=== PATIENT | male | born 1965 | race Hispanic/Latino ===

== ENCOUNTER 2018-08-17 18:45 | Emergency (ER) | payer SELFPAY ==
--- NOTE | 2018-08-17 20:22 | RAD REPORT ---
EXAM DESCRIPTION: RAD - Ankle Right 3 View - 08/17/2018 8:16 pm CLINICAL HISTORY: Ankle pain, twisting injury COMPARISON: None. FINDINGS: An oblique fracture is present through the distal fibula just superior to the tibiotalar j oint line. No angulation deformity. There is a minimal posterior displacement. There is a small free fracture fragment along the medial margin of the fracture plane. No distal tibia fracture. Ankle mortise is normal. Small plantar spur is present. Lateral soft tissue swelling is present. IMPRESSION: Distal right fibula fracture as detailed.
[2018-08-17] MEDS ORDERED: HYDROCODONE/APAP 7.5/325 MG TAB ONE (21:53)
[2018-08-17] MEDS ORDERED: KETOROLAC 30 MG/ML INJ ONE (21:54)
--- NOTE | 2018-08-17 22:03 | EDPHYS ---
Physician Documentation [facility] Name: Christian Rivers Age: 53 yrs Sex: Male : 1965 Arrival Date: 08/17/2018 Time: 18:46 Bed 24 Private MD: ED Physician Vern Quesada HPI: 08/17 21:46 This 53 yrs old Male presents to ER via Wheelchair with complaints of Foot snw Injury. 21:46 The patient presents with a contusion, decreased range of motion, pain, swelling, snw tenderness. The complaints affect the lateral aspect of right calf, right ankle, anterior aspect of right ankle and dorsum of right foot. Context: The problem was sustained outdoors, resulted from a mis-step, hole while exiting his vehicle, twisting of the extremity, the patient can partially bear weight, can ambulate using a cane. Onset: The symptoms/episode began/occurred suddenly, 1 week(s) ago, and became persistent. Associated signs and symptoms: Pertinent positives: swelling, ecchymosis, tenderness. Treatment prior to arrival includes: no previous treatment. Severity of symptoms: At their worst the symptoms were moderate. The patient has not experienced similar symptoms in the past. The patient has not recently seen a physician. Historical: - Allergies: 19:08 No Known Allergies; jd3 - Home Meds: 19:08 Metformin Oral [Active]; jd3 - PMHx: 19:08 Diabetes - NIDDM; jd3 22:42 Hypertension; wh - PSHx: 19:08 None; jd3 - Immunization history:: Adult Immunizations up to date, Flu vaccine is up to date. - Social history:: Smoking status: Patient/guardian denies using tobacco. - Ebola Screening: : Patient negative for fever greater than or equal to 101.5 degrees Fahrenheit, and additional compatible Ebola Virus Disease symptoms. ROS: 21:45 Constitutional: Negative for fever, chills, and weight loss, Eyes: Negative for injury, snw pain, redness, and discharge, ENT: Negative for injury, pain, and discharge, Neck: Negative for injury, pain, and swelling, Cardiovascular: Negative for chest pain, palpitations, and edema, Respiratory: Negative for shortness of breath, cough, wheezing, and pleuritic chest pain, Abdomen/GI: Negative for abdominal pain, nausea, vomiting, diarrhea, and constipation, Back: Negative for injury and pain, : Negative for injury, bleeding, discharge, and swelling. 21:45 MS/extremity: Positive for injury or acute deformity, contusion, decreased range of motion, pain, swelling, tenderness, of the dorsum of right foot and right ankle and lateral aspect of right calf. Exam: 21:43 Constitutional: This is a well developed, well nourished patient who is awake, alert, snw and in no acute distress. Head/Face: Normocephalic, atraumatic. Eyes: Pupils equal round and reactive to light, extra-ocular motions intact. Lids and lashes normal. Conjunctiva and sclera are non-icteric and not injected. Cornea within normal limits. Periorbital areas with no swelling, redness, or edema. ENT: Nares patent. No nasal discharge, no septal abnormalities noted. Tympanic membranes are normal and external auditory canals are clear. Oropharynx with no redness, swelling, or masses, exudates, or evidence of obstruction, uvula midline. Mucous membranes moist. Neck: Trachea midline, no thyromegaly or masses palpated, and no cervical lymphadenopathy. Supple, full range of motion without nuchal rigidity, or vertebral point tenderness. No Meningismus. Chest/axilla: Normal chest wall appearance and motion. Nontender with no deformity. No lesions are appreciated. Cardiovascular: Regular rate and rhythm with a normal S1 and S2. No gallops, murmurs, or rubs. Normal PMI, no JVD. No pulse deficits. Respiratory: Lungs have equal breath sounds bilaterally, clear to auscultation and percussion. No rales, rhonchi or wheezes noted. No increased work of breathing, no retractions or nasal flaring. Abdomen/GI: Soft, non-tender, with normal bowel sounds. No distension or tympany. No guarding or rebound. No evidence of tenderness throughout. Back: No spinal tenderness. No costovertebral tenderness. Full range of motion. Neuro: Awake and alert, GCS 15, oriented to person, place, time, and situation. Cranial nerves II-XII grossly intact. Motor strength 5/5 in all extremities. Sensory grossly intact. Cerebellar exam normal. Normal gait. Psych: Awake, alert, with orientation to person, place and time. Behavior, mood, and affect are within normal limits. 21:43 Musculoskeletal/extremity: Extremities: grossly normal except: noted in the right ankle, anterior aspect of right ankle and dorsum of right foot: ROM: limited active range of motion due to pain, Circulation is intact in all extremities. Sensation intact. Compartment Syndrome exam of affected extremity: is normal. Weight bearing: can bear weight with assistance only, uses cane, Calves: are non-tender, + spiral distal fibular fx on x-ray. 21:43 Skin: Appearance: normal except for affected area, injury, contusion(s), that are deep, of the lateral aspect of right calf, right ankle, anterior aspect of right ankle and dorsum of right foot, purple/blue ecchymosis with edema to lower leg and foot. Vital Signs: 19:08 BP 144 / 81; Pulse 89; Resp 16 S; Temp 98.1(TE); Pulse Ox 97% on R/A; Weight 73.94 kg jd3 (R); Height 5 ft. 3 in. (160.02 cm) (R); Pain 10/10; 22:45 BP 154 / 83; Pulse 84; Resp 18; Pulse Ox 95% on R/A; wh 19:08 Body Mass Index 28.87 (73.94 kg, 160.02 cm) jd3 MDM: 21:05 Patient medically screened. snw 22:03 Data reviewed: vital signs, nurses notes. Data interpreted: Pulse oximetry: on room air snw is 97 %. Interpretation: normal. Counseling: I had a detailed discussion with the patient and/or guardian regarding: the historical points, exam findings, and any diagnostic results supporting the discharge/admit diagnosis, the presence of at least one elevated blood pressure reading (>120/80) during this emergency department visit, radiology results, the need for outpatient follow up, to return to the emergency department if symptoms worsen or persist or if there are any questions or concerns that arise at home. Special discussion: I have referred the patient to see his PCP for further evaluation of high blood pressure. Based on the history and exam findings, there is no indication for further emergent testing or inpatient evaluation. I discussed with the patient/guardian the need to see the orthopedic surgeon for further evaluation of the symptoms. I discussed with the patient/guardian the need to see the primary care provider for further evaluation of the symptoms. 08/17 19:51 Order name: XRAY Ankle RIGHT 3 view; Complete Time: 20:43 jd3 08/17 21:17 Order name: Walking boot; Complete Time: 22:37 snw Administered Medications: 21:56 Drug: TORadol 60 mg Route: IM; Site: right gluteus; 22:24 Follow up: Response: No adverse reaction 21:57 Drug: Norris (7.5 mg-325 mg) 1 tabs Route: PO; 22:24 Follow up: Response: No adverse reaction 22:22 Drug: Tetanus-Diphtheria Toxoid Adult 0.5 ml {Alley Worker: [employer]. Exp: 07/26/2020. Lot #: [id number]. } Route: IM; Site: right deltoid; 22:24 Follow up: Response: No adverse reaction Disposition: 08/18 03:54 Co-signature as Attending Physician, Vern Quesada MD. Disposition: 08/17/18 22:02 Discharged to Home. Impression: FRACTURE OF DISTAL FIBULA. - Condition is Stable. - Discharge Instructions: Cast or Splint Care, Adult, Fibular Ankle Fracture Treated With or Without Immobilization, Adult, VIS, Tetanus, Diphtheria (Td) - CDC. - Prescriptions for Ultram 50 mg Oral Tablet - take 1 tablet by ORAL route every 6 hours As needed; 15 tablet. - Medication Reconciliation Form, Thank You Letter, Antibiotic Education, Prescription Opioid Use form. - Follow up: Private Physician; When: 2 - 3 days; Reason: Recheck today's complaints, Continuance of care, Re-evaluation by your physician. Follow up: Emergency Department; When: As needed; Reason: Worsening of condition. Follow up: Tacos Delgado MD; When: 2 - 3 days; Reason: Recheck today's complaints, Continuance of care. Signatures: Dispatcher [employer] EDMS Shelli iVllalba FNP-C TESTER OPERATOR HELPER-Lila Johnson Vern Quesada MD MD Kevin Levi RN RN jd3 Corrections: (The following items were deleted from the chart) 08/17 22:45 22:02 08/17/2018 22:02 Discharged to Home. Impression: FRACTURE OF DISTAL FIBULA. Condition is Stable. Forms are Medication Reconciliation Form, Thank You Letter, Antibiotic Education, Prescription Opioid Use. Follow up: Private Physician; When: 2 - 3 days; Reason: Recheck today's complaints, Continuance of care, Re-evaluation by your physician. Follow up: Emergency Department; When: As needed; Reason: Worsening of condition. Follow up: Dr. Tacos Delgado; When: 2 - 3 days; Reason: Recheck today's complaints, Continuance of care. snw
--- NOTE | 2018-08-17 22:03 | ER ---
Nurse's Notes [facility] Name: Christian Rivers Age: 53 yrs Sex: Male : 1965 Arrival Date: 08/17/2018 Time: 18:46 Bed 24 Private MD: Diagnosis: FRACTURE OF DISTAL FIBULA Presentation: 08/17 19:05 Presenting complaint: Patient states: "I fell when I twisted my right ankle last jd3 week.". Transition of care: patient was not received from another setting of care. Onset of symptoms was August 10, 2018. Risk Assessment: Do you want to hurt yourself or someone else? Patient reports no desire to harm self or others. Initial Sepsis Screen: Does the patient meet any 2 criteria? No. Patient's initial sepsis screen is negative. Does the patient have a suspected source of infection? No. Patient's initial sepsis screen is negative. Care prior to arrival: None. 19:05 Method Of Arrival: Wheelchair jd3 19:05 Acuity: EDGAR 4 jd3 Triage Assessment: 22:42 General: Appears in no apparent distress. Injury Description: RLE swelling. Historical: - Allergies: 19:08 No Known Allergies; jd3 - Home Meds: 19:08 Metformin Oral [Active]; jd3 - PMHx: 19:08 Diabetes - NIDDM; jd3 22:42 Hypertension; - PSHx: 19:08 None; jd3 - Immunization history:: Adult Immunizations up to date, Flu vaccine is up to date. - Social history:: Smoking status: Patient/guardian denies using tobacco. - Ebola Screening: : Patient negative for fever greater than or equal to 101.5 degrees Fahrenheit, and additional compatible Ebola Virus Disease symptoms. Screenin:41 Abuse screen: Denies threats or abuse. Denies injuries from another. Nutritional screening: No deficits noted. Tuberculosis screening: No symptoms or risk factors identified. Fall Risk None identified. Assessment: 21:05 General: Appears in no apparent distress. Behavior is calm, cooperative, appropriate wh for age. Pain: Complains of pain in right leg and right ankle Pain does not radiate. Pain currently is 7 out of 10 on a pain scale. Aggravated by weight bearing. Neuro: No deficits noted. Level of Consciousness is awake, alert, obeys commands, Oriented to person, place, time, situation, Appropriate for age Raw Sampler are equal bilaterally. Cardiovascular: Capillary refill < 3 seconds. Respiratory: Airway is patent Respiratory effort is even, unlabored, Respiratory pattern is regular, symmetrical. GI: Abdomen is flat, non-distended. : No signs and/or symptoms were reported regarding the genitourinary system. EENT: No signs and/or symptoms were reported regarding the EENT system. Derm: Skin is intact, is healthy with good turgor, Skin is pink, warm \\T\\ dry. normal. Musculoskeletal: Swelling present in right leg and right ankle. 22:40 Reassessment: Patient appears in no apparent distress at this time. Patient and/or wh family updated on plan of care and expected duration. Pain level reassessed. Patient is alert, oriented x 3, equal unlabored respirations, skin warm/dry/pink. Patient states feeling better. Vital Signs: 19:08 BP 144 / 81; Pulse 89; Resp 16 S; Temp 98.1(TE); Pulse Ox 97% on R/A; Weight 73.94 kg jd3 (R); Height 5 ft. 3 in. (160.02 cm) (R); Pain 10/10; 22:45 BP 154 / 83; Pulse 84; Resp 18; Pulse Ox 95% on R/A; wh 19:08 Body Mass Index 28.87 (73.94 kg, 160.02 cm) jd3 ED Course: 18:46 Patient arrived in ED. as 19:07 Triage completed. jd3 19:09 Arm band placed on. jd3 20:12 XRAY Ankle RIGHT 3 view In Process Unspecified. EDMS 20:41 Shelli Villalba FNP-C is PHCP. snw 20:42 Vern Quesada MD is Attending Physician. snw 21:35 Lila Briceno is Primary Nurse. wh 22:01 Tacos Delgado MD is Referral Physician. snw 22:41 No provider procedures requiring assistance completed. Patient did not have IV access wh during this emergency room visit. 22:42 Patient has correct armband on for positive identification. Bed in low position. Call wh light in reach. Side rails up X 1. NIBP on. Administered Medications: 21:56 Drug: TORadol 60 mg Route: IM; Site: right gluteus; wh 22:24 Follow up: Response: No adverse reaction wh 21:57 Drug: Eldena (7.5 mg-325 mg) 1 tabs Route: PO; 22:24 Follow up: Response: No adverse reaction 22:22 Drug: Tetanus-Diphtheria Toxoid Adult 0.5 ml {[employer] Park Officer: [employer]. Exp: 07/26/2020. Lot #: [id number]. } Route: IM; Site: right deltoid; 22:24 Follow up: Response: No adverse reaction Outcome: 22:02 Discharge ordered by . snkatelyn 22:43 Discharged to home via wheelchair, with walking boot on, POC instruction given on 3 wh point gait with cane 22:43 Condition: good 22:43 Discharge instructions given to patient, family, Instructed on discharge instructions, follow up and referral plans. no drinking with medication, no driving heavy equipment, medication usage, POC Fibula fracture Demonstrated understanding of instructions, follow-up care, medications, crutch walking, splint care, Prescriptions given X 1. 22:45 Patient left the ED. Signatures: Dispatcher [employer] EDMS Shelli Villalba, COMMERCIAL DOOR INSTALLER-C COMMERCIAL DOOR INSTALLER-CsnRachel Banuelos Winsy Kevin Levi, RN RN jd3 Corrections: (The following items were deleted from the chart) 19:09 19:05 Presenting complaint: Patient states: "I fell when I twisted my ankle last week." jd3 jd3
[2018-08-17] MEDS ORDERED: TETANUS & DIPHTHERIA TOX,ADULT 0.5 ML VIAL ONE (22:27)
[2018-08-17 22:56] VITALS: TEMP 98.1
[2018-08-17 22:57] VITALS: BP 154/83; O2SAT 95
== END 2018-08-17 22:45 | disposition home or self-care (01) ==
LOC: ER 18:45
DX: S82.831A Other fracture of upper and lower end of right fibula, initial encounter for closed fracture (principal); X58.XXXA Exposure to other specified factors, initial encounter; Y93.89 Activity, other specified; Y92.9 Unspecified place or not applicable; Z23 Encounter for immunization; I10 Essential (primary) hypertension; E11.9 Type 2 diabetes mellitus without complications
CPT/HCPCS: 90714; 96372; 99284

== ENCOUNTER 2020-12-01 13:19 | Emergency (ER) | payer SELFPAY ==
[2020-12-01 14:20] LABS: Absolute Lymphocytes (CBC) 1.6 K/uL (0.7-4.9); Basophils % 0.9 % (0-1.3); Hematocrit 41.4 % (39.6-49.0); Lymphocytes % 25.1 % (15.3-44.8); MPV 9.9 fL (7.6-11.3); RBC Red Blood Cell Count 4.65 M/uL (4.33-5.43)
[2020-12-01 14:21] LABS: Protime INR 0.94
[2020-12-01 14:30] LABS: ALT/SGPT 27 U/L (12-78); AST/SGOT 16 U/L (15-37); Albumin 3.4 g/dL (3.4-5.0); Alkaline Phosphatase 101 U/L (45-117); BUN Blood Urea Nitrogen 22 mg/dL (7-18); Bicarbonate 25 mmol/L (21-32); Bilirubin Direct < 0.1 mg/dL (0-0.2); Bilirubin Total 0.4 mg/dL (0.2-1.0); Glucose Level 245 mg/dL (74-106); Magnesium 2.1 mg/dL (1.8-2.4); NT PRO-BNP 95 pg/mL (<125); Potassium 3.9 mmol/L (3.5-5.1); Protein, Total 7.2 g/dL (6.4-8.2); Sodium Level 135 mmol/L (136-145); Troponin (Emerg Dept Use Only) < 0.02 ng/mL (0.0-0.045)
--- NOTE | 2020-12-01 14:39 | RAD REPORT ---
EXAM DESCRIPTION: CT - Head Brain Wo Cont - 12/01/2020 2:14 pm CLINICAL HISTORY: NEWBY'S PALSY, left-sided facial droop COMPARISON: No comparisons TECHNIQUE: Axial 5 mm thick images of the head were obtained without IV contrast. All CT scans are performed using dose optimization technique as appropriate and may include automated exposure control or mA/KV adjustment according to patient size. FINDINGS: No intracranial hemorrhage, mass, edema or shift of mid-line structures. No acute infarcti on changes seen. No abnormal extra-axial fluid collections. Ventricles are normal. Arterial tree calc ifications are present. Mastoid air cells and visualized portions of the paranasal sinuses are clear. No acute bony findings. IMPRESSION: Negative non-contrast CT head examination for acute or significant finding.
[2020-12-01] MEDS ORDERED: HYDRALAZINE HCL 20 MG/ML VIAL ONE (15:07)
--- NOTE | 2020-12-01 15:30 | RAD REPORT ---
EXAM DESCRIPTION: RAD - Chest Single View - 12/01/2020 2:19 pm CLINICAL HISTORY: CVA, stroke protocol chest film COMPARISON: December 2014 TECHNIQUE: AP portable chest image was obtained 12/01/2020 2:19 pm . FINDINGS: Lungs are clear. Lung volumes are low. Heart and vasculature are normal. No measurable ple ural effusion and no pneumothorax. No acute bony abnormality seen. No acute aortic findings suspected . IMPRESSION: No acute cardiopulmonary process.
--- NOTE | 2020-12-01 15:34 | ER ---
Nurse's Notes [facility] Name: Christian Rivers Age: 55 yrs Sex: Male : 1965 Arrival Date: 12/01/2020 Time: 13:16 Bed 3 Private MD: Diagnosis: Varma's palsy;Type 2 diabetes mellitus-with hyperglycemia Presentation: 12/01 13:16 Chief complaint: EMS states: He noticed yesterday at 1530 drooping to left bottom lip, jl7 denies R[place], denies dizziness, no other symptoms. Coronavirus screen: Client denies travel out of the [place] in the last 14 days. At this time, the client does not indicate any symptoms associated with coronavirus-19. Ebola Screen: No symptoms or risks identified at this time. An acute neurological deficit is present. The patients blood glucose was checked prior to arriving to the hospital and was found to be hyperglycemic. Initial Sepsis Screen: Does the patient meet any 2 criteria? No. Patient's initial sepsis screen is negative. Does the patient have a suspected source of infection? No. Patient's initial sepsis screen is negative. Risk Assessment: Do you want to hurt yourself or someone else? Patient reports no desire to harm self or others. Onset of symptoms was November 30, 2020 at 15:30. Care prior to arrival: Glucose check: 287 BP 204/105. Transition of care: patient was not received from another setting of care. 13:16 Method Of Arrival: EMS: [facility] 13:16 Acuity: EDGAR 2 jl7 Triage Assessment: 13:22 The onset of the patients symptoms was November 30, 2020 at 15:30. General: Appears in no jl7 apparent distress. uncomfortable, Behavior is cooperative, appropriate for age, anxious. Pain: Denies pain. Neuro: Level of Consciousness is awake, alert, obeys commands, Oriented to person, place, time, situation, Reports. Cardiovascular: Patient's skin is warm and dry. Respiratory: Airway is patent Respiratory effort is even, unlabored, Respiratory pattern is regular, symmetrical. Derm: Skin is pink, warm \T\ dry. Stroke Activation: Symptom onset > 6 hours Physician: Stroke Attending; Name: ; Notified At: ; Arrived At: Physician: Chief Stroke Resident; Name: ; Notified At: ; Arrived At: Physician: Stroke Resident; Name: ; Notified At: ; Arrived At: Physician: ED Attending; Name: ; Notified At: ; Arrived At: Physician: ED Resident; Name: ; Notified At: ; Arrived At: Historical: - Allergies: 13:22 No Known Allergies; jl7 - Home Meds: 13:22 None- pt reports using cinnamon for his DM [Active]; jl7 - PMHx: 13:22 Diabetes - NIDDM; Hypertension; jl7 - PSHx: 13:22 None; jl7 - Immunization history:: Adult Immunizations unknown. - Social history:: Smoking status: Patient denies any tobacco usage or history of. Screenin:00 Abuse screen: Denies threats or abuse. Denies injuries from another. Nutritional jl7 screening: No deficits noted. Tuberculosis screening: No symptoms or risk factors identified. Fall Risk IV access (20 points). Total Jacobson Fall Scale indicates No Risk (0-24 pts). Assessment: 13:20 VAN Scoring: Arm Drift: Patients demonstrates NO arm weakness. Patient is VAN Negative. jl7 The patient has not been NPO before screening. The patient is currently on the following diet: home The patient is alert, and able to follow commands. The patient does not exhibit slurred or garbled speech. The patient is not exhibiting difficulty speaking. The patient does not exhibit difficulty understanding words. The patient is able to swallow own secretions with no drooling or need for suction. Patient tolerated one teaspoon of water. No drooling, immediate coughing, gurgling, or clearing of the throat was noted. The patient tolerated 90mL of water. No drooling, immediate coughing, gurgling, or clearing of the throat was noted. The patient passed the bedside swallow screening. Oral medications may be given as ordered. Contact Physician for further diet orders. Provider notified of bedside swallow screening results: Ignacio PRYOR. T-PA (Activase) Screening: Contraindications: Patient reports onset of signs and symptoms of stroke greater than 6 hours ago: Yes. Vital Signs: 13:16 BP 172 / 95; Pulse 85; Resp 16 S; Temp 98.6(O); Pulse Ox 98% on R/A; Weight 79.38 kg jl7 (R); Height 5 ft. 3 in. (160.02 cm); Pain 0/10; 13:30 BP 173 / 99; Pulse 80; Resp 15; Pulse Ox 98% ; jl7 14:30 BP 199 / 111; Pulse 76; Resp 16; Pulse Ox 99% ; jl7 14:45 BP 173 / 110; Pulse 84; Resp 14; Pulse Ox 99% ; jl7 15:12 BP 150 / 89; Pulse 84; Resp 15; Pulse Ox 99% ; jl7 13:16 Body Mass Index 31.00 (79.38 kg, 160.02 cm) jl7 NIH Stroke Scale Scores: 13:20 NIHSS Score: 0 jl7 ED Course: 13:16 Patient arrived in ED. jl7 13:20 Triage completed. jl7 13:22 Arm band placed on right wrist. jl7 13:30 Patient has correct armband on for positive identification. Placed in gown. Bed in low jl7 position. Call light in reach. Side rails up X 1. residential monitor on. Pulse ox on. NIBP on. 13:52 Ignacio Pyle PA is PHCP. jr8 13:52 Lee Calix MD is Attending Physician. jr8 14:00 Initial lab(s) drawn, by dc, sent to lab. Inserted saline lock: 20 gauge in right hand, jl7 using aseptic technique. Blood collected. 14:42 Luly Nielsen RN is Primary Nurse. jl7 14:45 EKG done, by ED staff, reviewed by Ignacio PRYOR. jl7 Administered Medications: 14:43 Drug: hydrALAZINE 10 mg Route: IVP; Site: right hand; jl7 15:28 Follow up: Response: Blood pressure is lowered jl7 15:28 Drug: Insulin Regular Human 10 units {Co-Signature: ld1 (Oanh Ramirez RN).} Route: jl7 Sub-Q; Site: right upper arm; 15:28 Drug: predniSONE 40 mg Route: PO; jl7 Outcome: 15:33 Discharge ordered by . jr8 16:12 Patient left the ED. ld1 NIH Stroke Scale - NIH Stroke Score Date: 12/01/2020 Time: 13:20 Total Score = 0 1a. Level of Consciousness (LOC) - 0(Alert) 1b. Level of Consciousness (LOC) (Year \T\ Age) - 0(Both) 1c. LOC Commands (Open \T\ Closes Eyes/Laundry Supervisor) - 0(Both) 2. Best Gaze (Lateral Gaze Paresis) - 0(Normal) 3. Visual Field Loss - 0(No visual loss) 4. Facial Palsy - 0(Normal) 5a. Left Arm: Motor (10-second hold) - 0(No drift) 5b. Right Arm: Motor (10-second hold) - 0(No drift) 6a. Left Leg: Motor (5-second hold - always test supine) - 0(No drift) 6b. Right Leg: Motor (5-second hold - always test supine) - 0(No drift) 7. Limb Ataxia (finger/nose \T\ heel/keys - test with eyes open) - 0(Absent) 8. Sensory Loss (pinprick arms/legs/face) - 0(Normal) 9. Best Language: Aphasia (description/naming/reading) - 0(No aphasia) 10. Dysarthria (speech clarity - read or repeat words) - 0(Normal) 11. Extinction and Inattention (visual/tactile/auditory/spatial/personal) - 0(No abnormality) Initials: jl7 Signatures: Ignacio Pyle PA PA jr8 Luly Nielsen RN RN jl7 Oanh Ramirez RN RN ld1 Oanh Ramirez RN ld1
[2020-12-01] MEDS ORDERED: predniSONE 20 MG TAB ONE (15:45)
[2020-12-01] MEDS ORDERED: INSULIN -REGULAR HUMAN 50 UNIT/0.5 ML ML ONE (15:46)
--- NOTE | 2020-12-01 16:12 | EDPHYS ---
Physician Documentation [facility] Name: Christian Rivers Age: 55 yrs Sex: Male : 1965 Arrival Date: 12/01/2020 Time: 13:16 Bed 3 Private MD: ED Physician Lee Calix HPI: 12/01 15:12 This 55 yrs old Male presents to ER via EMS with complaints of S/S of Possible jr8 Stroke. 15:12 Onset: The symptoms/episode began/occurred acutely, today. Duration: The episode is jr8 continuous. Context: symptoms became apparent at an unknown time, occurred at work. The symptoms are alleviated by nothing. The symptoms are aggravated by nothing. Associated signs and symptoms: The patient has no apparent associated signs or symptoms. Severity of symptoms: At their worst the symptoms were mild in the emergency department the symptoms are unchanged. Patient's baseline: Neuro: alert and fully oriented, Motor: no deficits, Ambulation: walks without assistance, Speech: normal. The patient has not experienced similar symptoms in the past. The patient has not recently seen a physician. Patient while at work stated that he was not feeling well. Stated that he felt a facial difference. Co-workers saw facial asymmetry and EMS was called. Historical: - Allergies: 13:22 No Known Allergies; jl7 - Home Meds: 13:22 None- pt reports using cinnamon for his DM [Active]; jl7 - PMHx: 13:22 Diabetes - NIDDM; Hypertension; jl7 - PSHx: 13:22 None; jl7 - Immunization history:: Adult Immunizations unknown. - Social history:: Smoking status: Patient denies any tobacco usage or history of. ROS: 15:12 Eyes: Negative for injury, pain, redness, and discharge, ENT: Negative for injury, jr8 pain, and discharge, Neck: Negative for injury, pain, and swelling, Cardiovascular: Negative for chest pain, palpitations, and edema, Respiratory: Negative for shortness of breath, cough, wheezing, and pleuritic chest pain, Abdomen/GI: Negative for abdominal pain, nausea, vomiting, diarrhea, and constipation, Back: Negative for injury and pain, MS/Extremity: Negative for injury and deformity, Skin: Negative for injury, rash, and discoloration. 15:12 Neuro: Positive for headache, weakness. Exam: 15:12 CT study not indicated or reported. Reason for not performing CT: No acute findings jr8 15:12 Head/Face: Normocephalic, atraumatic. Eyes: Pupils equal round and reactive to light, extra-ocular motions intact. Lids and lashes normal. Conjunctiva and sclera are non-icteric and not injected. Cornea within normal limits. Periorbital areas with no swelling, redness, or edema. ENT: Nares patent. No nasal discharge, no septal abnormalities noted. Tympanic membranes are normal and external auditory canals are clear. Oropharynx with no redness, swelling, or masses, exudates, or evidence of obstruction, uvula midline. Mucous membranes moist. Neck: Trachea midline, no thyromegaly or masses palpated, and no cervical lymphadenopathy. Supple, full range of motion without nuchal rigidity, or vertebral point tenderness. No Meningismus. Cardiovascular: Regular rate and rhythm with a normal S1 and S2. No gallops, murmurs, or rubs. Normal PMI, no JVD. No pulse deficits. Respiratory: Lungs have equal breath sounds bilaterally, clear to auscultation and percussion. No rales, rhonchi or wheezes noted. No increased work of breathing, no retractions or nasal flaring. Abdomen/GI: Soft, non-tender, with normal bowel sounds. No distension or tympany. No guarding or rebound. No evidence of tenderness throughout. Back: No spinal tenderness. No costovertebral tenderness. Full range of motion. Skin: Warm, dry with normal turgor. Normal color with no rashes, no lesions, and no evidence of cellulitis. MS/ Extremity: Pulses equal, no cyanosis. Neurovascular intact. Full, normal range of motion. 15:12 Neuro: Orientation: to person, place, time \T\ situation. Mentation: is normal, Memory: is normal, immediate memory is intact, recent memory is intact, remote memory is intact, Cranial nerves: CN I not tested, normal except CN-7 palsy present, visual durant are intact. extraocular movements are intact, facial droop noted on right, with forehead involved. decreased ocular muscle tone in the right eye, Nystagmus is absent. Speech is clear and appropriate. Tongue strength is normal, Cerebellar function: normal finger to nose testing, heel to keys testing is normal, Motor: moves all fours, strength is 5/5 in all extremities, Sensation: no obvious gross deficits, seizure activity, is not displayed by the patient, Abnormal movements: there are no abnormal movements. Vital Signs: 13:16 BP 172 / 95; Pulse 85; Resp 16 S; Temp 98.6(O); Pulse Ox 98% on R/A; Weight 79.38 kg jl7 (R); Height 5 ft. 3 in. (160.02 cm); Pain 0/10; 13:30 BP 173 / 99; Pulse 80; Resp 15; Pulse Ox 98% ; jl7 14:30 BP 199 / 111; Pulse 76; Resp 16; Pulse Ox 99% ; jl7 14:45 BP 173 / 110; Pulse 84; Resp 14; Pulse Ox 99% ; jl7 15:12 BP 150 / 89; Pulse 84; Resp 15; Pulse Ox 99% ; jl7 13:16 Body Mass Index 31.00 (79.38 kg, 160.02 cm) jl7 NIH Stroke Scale Scores: 13:20 NIHSS Score: 0 jl7 MDM: 13:52 Patient medically screened. jr8 15:12 Differential diagnosis: CVA, TIA, metabolic disorder, drug effects, Varma's Palsy. Data 8 reviewed: vital signs, nurses notes, lab test result(s), EKG, radiologic studies, CT scan, plain films. Data interpreted: Pulse oximetry: on room air is 99 %. Interpretation: normal. Counseling: I had a detailed discussion with the patient and/or guardian regarding: the historical points, exam findings, and any diagnostic results supporting the discharge/admit diagnosis, lab results, radiology results, the need for outpatient follow up, a family practitioner, a neurologist, to return to the emergency department if symptoms worsen or persist or if there are any questions or concerns that arise at home. ED course: Counseled patient on sugar control and varma's palsy. Understands that we will start him back on his meds but that we need to give prednisone for this particular condition. Adequate intake of water is a must. Patient good with this and will come back if something is worse or will change . 12/01 13:53 Order name: Basic Metabolic Panel [facility] 12/01 13:53 Order name: CBC with Diff [facility] 12/01 13:53 Order name: LFT's 12/01 13:53 Order name: Magnesium 12/01 13:53 Order name: NT PRO-BNP 12/01 13:53 Order name: PT-INR 12/01 13:53 Order name: Troponin (emerg Dept Use Only) 12/01 14:16 Order name: Glucose, Ancillary Testing; Complete Time: 14:45 EDMS 12/01 14:22 Order name: Protime (+INR); Complete Time: 14:45 EDMS 12/01 14:23 Order name: CBC with Automated Diff; Complete Time: 14:45 EDMS 12/01 14:31 Order name: Basic Metabolic Panel; Complete Time: 14:45 EDMS 12/01 14:31 Order name: Liver (Hepatic) Function; Complete Time: 14:45 EDMS 12/01 14:31 Order name: Troponin (Emerg Dept Use Only); Complete Time: 14:45 EDMS 12/01 14:31 Order name: NT PRO-BNP; Complete Time: 14:45 EDMS 12/01 13:53 Order name: XRAY Chest (1 view) 12/01 13:53 Order name: EKG; Complete Time: 13:54 12/01 13:53 Order name: Cardiac monitoring; Complete Time: 14:01 12/01 13:53 Order name: EKG - Nurse/Tech; Complete Time: 14:58 12/01 13:53 Order name: IV Saline Lock; Complete Time: 14:01 12/01 13:53 Order name: Labs collected and sent; Complete Time: 14:01 12/01 13:53 Order name: O2 Per Protocol; Complete Time: 14:01 12/01 13:53 Order name: O2 Sat Monitoring; Complete Time: 14:01 12/01 13:53 Order name: CT Head Brain wo Cont 12/01 14:31 Order name: Magnesium; Complete Time: 14:45 EDMS 12/01 14:41 Order name: CT; Complete Time: 14:45 EDMS 12/01 15:31 Order name: RAD; Complete Time: 15:34 EDMS 12/01 16:07 Order name: Glucose, Ancillary Testing; Complete Time: 19:17 EDMS Administered Medications: 14:43 Drug: hydrALAZINE 10 mg Route: IVP; Site: right hand; jl7 15:28 Follow up: Response: Blood pressure is lowered 15:28 Drug: Insulin Regular Human 10 units {Co-Signature: ld1 (Oanh Ramirez RN).} Route: jl7 Sub-Q; Site: right upper arm; 15:28 Drug: predniSONE 40 mg Route: PO; jl7 Disposition: 16:51 Co-signature as Attending Physician, Lee Calix MD. kdr Disposition: 12/01/20 15:33 Discharged to Home. Impression: Varma's palsy, Type 2 diabetes mellitus - with hyperglycemia. - Condition is Stable. - Discharge Instructions: Varma Palsy, Adult. - Prescriptions for Metformin 850 mg Oral Tablet - take 1 tablet by ORAL route 2 times per day with morning and evening meals; 60 tablet. Prednisone 20 mg Oral Tablet - take 2 tablets by ORAL route once daily for 7 days; 14 tablet. - Medication Reconciliation Form, Thank You Letter, Antibiotic Education, Prescription Opioid Use form. - Follow up: Private Physician; When: 1 week; Reason: Recheck today's complaints, Continuance of care, Re-evaluation by your physician. - Problem is new. - Symptoms have improved. NIH Stroke Scale - NIH Stroke Score Date: 12/01/2020 Time: 13:20 Total Score = 0 1a. Level of Consciousness (LOC) - 0(Alert) 1b. Level of Consciousness (LOC) (Year \T\ Age) - 0(Both) 1c. LOC Commands (Open \T\ Closes Eyes/Gasateria Attendant) - 0(Both) 2. Best Gaze (Lateral Gaze Paresis) - 0(Normal) 3. Visual Field Loss - 0(No visual loss) 4. Facial Palsy - 0(Normal) 5a. Left Arm: Motor (10-second hold) - 0(No drift) 5b. Right Arm: Motor (10-second hold) - 0(No drift) 6a. Left Leg: Motor (5-second hold - always test supine) - 0(No drift) 6b. Right Leg: Motor (5-second hold - always test supine) - 0(No drift) 7. Limb Ataxia (finger/nose \T\ heel/keys - test with eyes open) - 0(Absent) 8. Sensory Loss (pinprick arms/legs/face) - 0(Normal) 9. Best Language: Aphasia (description/naming/reading) - 0(No aphasia) 10. Dysarthria (speech clarity - read or repeat words) - 0(Normal) 11. Extinction and Inattention (visual/tactile/auditory/spatial/personal) - 0(No abnormality) Initials: jl7 Signatures: Dispatcher [employer] EDLee Guardado MD MD kdr Roszak, Josh, PA PA jr8 Luly Nielsen RN RN jl7 Oanh Ramirez RN RN ld1 Oanh Ramirez RN ld1 Corrections: (The following items were deleted from the chart) 16:12 15:33 12/01/2020 15:33 Discharged to Home. Impression: Varma's palsy; Type 2 ld1 diabetes mellitus - with hyperglycemia. Condition is Stable. Forms are Medication Reconciliation Form, Thank You Letter, Antibiotic Education, Prescription Opioid Use. Follow up: Private Physician; When: 1 week; Reason: Recheck today's complaints, Continuance of care, Re-evaluation by your physician. Problem is new. Symptoms have improved. jr8
[2020-12-01 16:18] VITALS: O2SAT 99
[2020-12-01 16:22] VITALS: BP 150/89
--- NOTE | 2020-12-02 16:31 | EKG ---
Test Date: 2020-12-01 Test Time: 14:50:54 Buffet Runner: CHATO MEASUREMENT RESULTS: Intervals: Rate: 78 MT: 158 QRSD: 80 QT: 376 QTc: 428 [place]: P: 51 MT: 158 QRS: 35 T: 72 INTERPRETIVE STATEMENTS: Normal sinus rhythm Normal ECG Compared to ECG 01/02/2015 08:34:54 Sinus tachycardia no longer present T-wave abnormality no longer present Electronically Signed On 12-02-20 16:29:48 CDT by Jerson Fermin
== END 2020-12-01 16:12 | disposition home or self-care (01) ==
LOC: ER 13:19
DX: G51.0 Bell's palsy (principal); E11.65 Type 2 diabetes mellitus with hyperglycemia; I10 Essential (primary) hypertension
CPT/HCPCS: 36415; 70450; 71045; 80048; 80076; 82947; 83735; 83880; 84484; 85025; 85610; 93005; 96372; 96374; 99284; J0360; J7512

== ENCOUNTER 2022-08-25 21:43 | Emergency (ER) | payer SELFPAY ==
--- NOTE | 2022-08-25 22:20 | EDPHYS ---
Physician Documentation [facility] Name: Christian Rivers Age: 57 yrs Sex: Male : 1965 Arrival Date: 08/25/2022 Time: 21:46 Bed 7 Private MD: ED Physician Sundeep Shay Historical: - Allergies: 08/25 22:06 No Known Allergies; kl - PMHx: 22:06 Diabetes - NIDDM; Hypertension; kl - PSHx: 22:06 None; kl - Immunization history:: Adult Immunizations not up to date. - Social history:: Smoking status: Patient denies any tobacco usage or history of. Vital Signs: 22:04 BP 190 / 95; Pulse 80; Resp 16; Temp 97.8(O); Weight 73.48 kg (R); Height 5 ft. 6 in. ; kl Pain 10/10; 22:04 Body Mass Index 26.15 (73.48 kg, 167.64 cm) kl 22:04 Pain Scale: Adult kl MDM: 22:00 Patient medically screened. snw 08/25 22:19 Order name: Sling snw Administered Medications: No medications were administered Disposition Summary: 08/25/22 22:20 Discharge Ordered Location: Home snw Condition: Stable snw Diagnosis - Pain in right shoulder snw - Strain of other muscles, fascia and tendons at shoulder and upper arm level, right snw arm Followup: snw - With: Emergency Department - When: As needed - Reason: Worsening of condition Followup: snw - With: Private Physician - When: 2 - 3 days - Reason: Recheck today's complaints, Continuance of care, Re-evaluation by your physician Forms: - Medication Reconciliation Form snw - Thank You Letter snw - Antibiotic Education snw - Prescription Opioid Use snw Signatures: Gely Galaviz RN RN Shelli Addison FNP-Ryan LEONE-Csnw
--- NOTE | 2022-08-25 22:20 | ER ---
Nurse's Notes [facility] Name: Christian Rivers Age: 57 yrs Sex: Male : 1965 Arrival Date: 08/25/2022 Time: 21:46 Bed 7 Private MD: Diagnosis: Pain in right shoulder;Strain of other muscles, fascia and tendons at shoulder and upper arm level, right arm Presentation: 08/25 22:04 Chief complaint: Patient states: right shoulder and right arm pain x 1 month. Coronavirus screen: Vaccine status: Patient reports receiving the 1st dose of the Covid vaccine. Ebola Screen: Patient negative for fever greater than or equal to 101.5 degrees Fahrenheit, and additional compatible Ebola Virus Disease symptoms. Initial Sepsis Screen: Does the patient meet any 2 criteria? No. Patient's initial sepsis screen is negative. Does the patient have a suspected source of infection? No. Patient's initial sepsis screen is negative. Risk Assessment: Do you want to hurt yourself or someone else? Patient reports no desire to harm self or others. Onset of symptoms was July 28, 2022. 22:04 Method Of Arrival: Ambulatory 22:04 Acuity: EDGAR 4 kl Triage Assessment: 22:07 General: Appears uncomfortable, well groomed, well developed, Behavior is calm, kl cooperative. Pain: Complains of pain in right shoulder Pain radiates to right arm Pain currently is 10 out of 10 on a pain scale. EENT: No deficits noted. Neuro: No deficits noted. Cardiovascular: No deficits noted. Respiratory: No deficits noted. GI: No deficits noted. No signs and/or symptoms were reported involving the gastrointestinal system. : No deficits noted. No signs and/or symptoms were reported regarding the genitourinary system. Musculoskeletal: Reports weakness in right arm pain in right arm denies injury. Historical: - Allergies: 22:06 No Known Allergies; kl - PMHx: 22:06 Diabetes - NIDDM; Hypertension; kl - PSHx: 22:06 None; kl - Immunization history:: Adult Immunizations not up to date. - Social history:: Smoking status: Patient denies any tobacco usage or history of. Screenin:15 [facility] ED Fall Risk Assessment (Adult) Score/Fall Risk Level 0 - 2 = Low Risk. Abuse as6 screen: Denies threats or abuse. Denies injuries from another. Nutritional screening: No deficits noted. Tuberculosis screening: No symptoms or risk factors identified. Assessment: 22:14 General: Appears uncomfortable, Behavior is calm, cooperative. Pain: Complains of pain as6 in right arm and right shoulder and posterior chest. Musculoskeletal: Range of motion: limited in right shoulder Reports pain in right shoulder. Vital Signs: 22:04 BP 190 / 95; Pulse 80; Resp 16; Temp 97.8(O); Weight 73.48 kg (R); Height 5 ft. 6 in. ; kl Pain 10/; 22:04 Body Mass Index 26.15 (73.48 kg, 167.64 cm) 22:04 Pain Scale: Adult ED Course: 21:46 Patient arrived in ED. ja2 21:55 Shelli Myers FNP-C [facility]. snw 21:55 Sundeep Shay MD is Attending Physician. snw 22:06 Triage completed. 22:14 Waldo Graff, RN is Primary Nurse. as6 22:14 Arm band placed on. as6 22:15 Bed in low position. Call light in reach. Side rails up X 1. as6 Administered Medications: No medications were administered Medication: 22:15 VIS not applicable for this client. as6 Outcome: 22:20 Discharge ordered by . snw Signatures: Gely Galaviz, RN RN Shelli Addison FNP-C FNP-Csnw Yael Luo [facility] Waldo Graff, CLIFTON LAZO as6
[2022-08-25] MEDS ORDERED: KETOROLAC 30 MG/ML INJ ONE (22:27)
[2022-08-25] MEDS ORDERED: DIAZEPAM 5 MG TABLET ONE (22:27)
[2022-08-26 00:29] VITALS: TEMP 97.8
[2022-08-26 00:31] VITALS: BP 162/86; O2SAT 97
== END 2022-08-25 22:33 | disposition home or self-care (01) ==
LOC: ER 21:43
DX: S46.811A Strain of other muscles, fascia and tendons at shoulder and upper arm level, right arm, initial encounter (principal)
CPT/HCPCS: 96372; 99283

== ENCOUNTER 2025-02-03 00:17 | Inpatient (IN) | payer OTHER, SELFPAY ==
--- OUTSIDE RECORDS SUMMARY | 2025-02-03 00:20 | XMS REPORT | Continuity of Care Document ---
Author Name Unknown Address [address] [place] [address] [place] [address] Care Team Providers Care Extractor Filler Name Role Phone ADA ROWLEY Attending Clinician Unavailable Encounters Start Date/Time End Date/Time Encounter Type Admission Type Attending Clinicians Care Facility Care Department Encounter ID Source 2024-08-08 21:51:00 2024-08-09 00:51:00 Emergency Emergency ADA ROWLEY General Medicine [id number] [address] [place] [address]
[2025-02-03] MEDS ORDERED: METOPROLOL TAR 50 MG TAB ONE (00:54)
[2025-02-03] MEDS ORDERED: ONDANSETRON 4 MG/2 ML VIAL ONE (00:54)
[2025-02-03] MEDS ORDERED: FENTANYL CITR 100 MCG/2 ML ONE (00:56)
[2025-02-03] MEDS ORDERED: ASPIRIN 81 MG CHEWABLE TABLET ONE (00:57)
[2025-02-03 01:00] LABS: Absolute Lymphocytes (CBC) 1.6 K/uL (0.7-4.9); Hematocrit 35.6 % (39.6-49.0); Hemoglobin 12.1 g/dL (13.6-17.9); MCH 29.6 pg (27.0-35.0); MCHC 33.9 g/dL (32.0-36.0); MCV 87.5 fL (80-100); MPV 7.8 fL (7.6-11.3); Nucleated RBC Absolute Count 0.0 (0-0); Nucleated Red Blood Cells % 0.0 % (0-0); RBC Red Blood Cell Count 4.07 M/uL (4.33-5.43); White Blood Count 7.30 thou/uL (4.3-10.9)
[2025-02-03 01:04] LABS: PT Prothrombin Time 11.4 SECONDS (10-13.0); Protime INR 1.01
[2025-02-03 01:20] LABS: ALT/SGPT 28 U/L (16-61); AST/SGOT 19 U/L (15-37); Albumin 3.0 g/dL (3.4-5.0); Albumin/Globulin Ratio 0.8 (1.1-1.8); Alkaline Phosphatase 84 U/L (45-117); Anion Gap 8.5 mEq/L (5.0-15.0); BUN Blood Urea Nitrogen 36 mg/dL (7-18); Globulin 4.0 g/dL (2.3-3.5); Glucose Level 155 mg/dL (74-106); Lipase 65 U/L (13-75); Magnesium 2.1 mg/dL (1.6-2.4); NT PRO-BNP 1185 pg/mL (<125); Potassium 4.5 mEq/L (3.5-5.1); Troponin High Sensitivity 19.5 pg/mL (<58.9)
[2025-02-03 01:22] LABS: Sqamous Epithelial None Seen /HPF (None Seen); Urine Culture Reflex Order NOT NEEDED; Urine Microscopic Reflex YN ORDER UMIC
[2025-02-03 01:31] LABS: Bilirubin Indirect, Calculated 0.0 mg/dL (0.2-0.8)
[2025-02-03 02:30] LABS: Influenza A Ag Negative; Influenza B Ag Negative; SARS-CoV-2 Antigen Rapid Res Negative (Negative)
[2025-02-03] MEDS ORDERED: NA CHLORIDE 0.9% 1,000 ML ONE (03:25)
[2025-02-03] MEDS ORDERED: Levofloxacin500mg IV 500 MG/100 ML BAG IV ONE (03:25)
[2025-02-03] MEDS ORDERED: ACETYLCYST 6,000 MG/30 ML VIAL ONE (03:26)
--- NOTE | 2025-02-03 03:56 | ER ---
Nurse's Notes [facility] Name: Christian Rivers Age: 60 yrs Sex: Male : 1965 Arrival Date: 02/03/2025 Time: 00:17 Bed 5 Private MD: Diagnosis: Chest pain, unspecified;Essential (primary) hypertension;Pneumonia due to other specified bacteria;Chronic kidney disease, unspecified Presentation: 02/03 00:30 Chief complaint: Patient states: mid sternal CP radiating to let neck X2 weeeks. lg3 Coronavirus screen: Client denies travel out of the [place] in the last 14 days. At this time, the client does not indicate any symptoms associated with coronavirus-19. Ebola Screen: No symptoms or risks identified at this time. Initial Sepsis Screen: Does the patient meet any 2 criteria? No. Patient's initial sepsis screen is negative. Does the patient have a suspected source of infection? No. Patient's initial sepsis screen is negative. Risk Assessment: Do you want to hurt yourself or someone else? Patient reports no desire to harm self or others. Onset of symptoms is unknown. 00:30 Method Of Arrival: Ambulatory lg3 00:30 Acuity: EDGAR 3 lg3 Triage Assessment: 00:32 General: Appears in no apparent distress. comfortable, Behavior is calm, cooperative. lg3 Pain: Complains of pain in chest Pain radiates to neck. EENT: No deficits noted. No signs and/or symptoms were reported regarding the EENT system. Neuro: No deficits noted. Dawson Agitation-Sedation Scale (RASS): 0 - Alert and Calm Level of Consciousness is awake, alert, obeys commands, Oriented to person, place, time, situation. Cardiovascular: No deficits noted. Reports chest pain, Denies shortness of breath, Heart tones S1 S2 present Capillary refill < 3 seconds Clubbing of nail beds is absent JVD is absent Patient's skin is warm and dry. Respiratory: No deficits noted. Airway is patent Respiratory effort is even, unlabored, Respiratory pattern is regular, symmetrical. GI: No deficits noted. No signs and/or symptoms were reported involving the gastrointestinal system. : No signs and/or symptoms were reported regarding the genitourinary system. Derm: No deficits noted. No signs and/or symptoms reported regarding the dermatologic system. Skin is intact, is healthy with good turgor, Skin is dry, Skin is normal, Skin temperature is warm. Musculoskeletal: No deficits noted. No signs and/or symptoms reported regarding the musculoskeletal system. Circulation, motion, and sensation intact. Range of motion: intact in all extremities. Historical: - Allergies: 00:32 No Known Allergies; lg3 - Home Meds: 00:32 None [Active]; lg3 - PMHx: 00:32 Diabetes - NIDDM; Hypertension; lg3 - PSHx: 00:32 None; lg3 - Immunization history:: Adult Immunizations up to date. - Infectious Disease History:: Denies. - Social history:: Smoking status: Patient denies any tobacco usage or history of. Patient/guardian denies using alcohol, street drugs. - Family history:: not pertinent. Screenin:49 [facility] ED Fall Risk Assessment (Adult) History of falling in the last 3 months, al5 including since admission No falls in past 3 months (0 pts) Confusion or Disorientation No (0 pts) Intoxicated or Sedated No (0 pts) Impaired Gait No (0 pts) Mobility Assist Device Used No (0 pt) Altered Elimination No (0 pt) Score/Fall Risk Level 0 - 2 = Low Risk Oriented to surroundings, Maintained a safe environment, Hourly rounding (assess needs \T\ fall precautionary measures) done. Abuse screen: Denies threats or abuse. Denies injuries from another. Nutritional screening: No deficits noted. Tuberculosis screening: No symptoms or risk factors identified. Assessment: 00:48 General: Appears in no apparent distress. comfortable, Behavior is calm, cooperative. al5 Pain: Complains of pain in chest Pain radiates to neck Pain began 1-2 weeks. Neuro: Level of Consciousness is awake, alert, obeys commands, Oriented to person, place, time, situation. Cardiovascular: Reports chest pain, Capillary refill < 3 seconds Patient's skin is warm and dry. Rhythm is sinus rhythm. Respiratory: Airway is patent Respiratory effort is even, unlabored, Respiratory pattern is regular, symmetrical. GI: No signs and/or symptoms were reported involving the gastrointestinal system. : No signs and/or symptoms were reported regarding the genitourinary system. EENT: No signs and/or symptoms were reported regarding the EENT system. Derm: Skin is intact, is healthy with good turgor, Skin is pink, warm \T\ dry. normal. Musculoskeletal: Circulation, motion, and sensation intact. Range of motion: intact in all extremities. Vital Signs: 00:30 BP 185 / 105; Pulse 98; Resp 17 S; Temp 98.2(O); Pulse Ox 100% on R/A; Weight 58.97 kg; lg3 Height 5 ft. 3 in. (R); Pain 10/10; 00:40 BP 182 / 95; Pulse 92; Resp 18; Pulse Ox 99% on R/A; kb4 01:00 BP 156 / 92; Pulse 91; Resp 18; Pulse Ox 100% on R/A; kb4 02:00 BP 140 / 79; Pulse 82; Resp 18; Pulse Ox 98% ; cp4 03:00 BP 192 / 99; Pulse 86; Resp 18; Pulse Ox 100% ; cp4 04:00 BP 190 / 95; Pulse 85; Resp 18; Pulse Ox 100% ; cp4 00:30 Body Mass Index 23.03 (58.97 kg, 160.02 cm) lg3 00:30 Pain Scale: Adult lg3 ED Course: 00:21 Patient arrived in ED. jj6 00:23 Oneil Middleton MD is Attending Physician. sami 00:32 Triage completed. lg3 00:32 Arm band placed on right wrist. lg3 00:50 Patient has correct armband on for positive identification. Bed in low position. Call al5 light in reach. Side rails up X2. Provided Education on: plan of care. Client placed on continuous cardiac and pulse oximetry monitoring. NIBP monitoring applied. 00:50 No provider procedures requiring assistance completed. Patient maintains SpO2 al5 saturation greater than 95% on room air. 01:14 XRAY Chest (1 view) In Process Unspecified. EDMS 01:14 Jessica Molina RN is Primary Nurse. kb4 01:14 Inserted saline lock: 20 gauge in right forearm, using aseptic technique. kb4 02:02 CT Chest For PE Angio In Process Unspecified. EDMS 02:02 CT Head C Spine In Process Unspecified. EDMS 03:55 Ángel Blancas MD is Hospitalizing Provider. sami 05:42 Patient admitted, IV remains in place. cp4 Administered Medications: 00:46 CANCELLED (Duplicate Order): aspirinchewable tablet 81 mg PO once sami 01:09 Drug: fentaNYL (PF) IVP 50 mcg IVP once Route: IVP; Site: right forearm; kb4 01:10 Follow up: Response: No adverse reaction kb4 01:09 Drug: Ondansetron IVP 4 mg IVP once; over 2 minutes Route: IVP; Site: right forearm; kb4 01:10 Follow up: Response: No adverse reaction kb4 01:09 Drug: Metoprolol PO 50 mg PO once Route: PO; kb4 01:10 Follow up: Response: No adverse reaction kb4 01:09 Drug: Aspirin PO Chewable Tablet 324 mg PO once; 81 mg tablets x 4 Route: PO; kb4 01:10 Follow up: Response: No adverse reaction kb4 03:55 Drug: levofloxacin IVPB 500 mg 100 ml IVPB once over 60 mins Volume: 100 ml; Route: al5 IVPB; Infused Over: 60 mins; Site: right forearm; 04:43 Follow up: IV Status: Completed infusion cp4 03:56 Drug: NS 0.9% IV 1000 ml IV at 1000 ml once; to be given as a bolus over 60 minutes al5 Route: IV; Rate: 1000 ml; Site: right forearm; 04:43 Follow up: IV Status: Completed infusion cp4 03:56 Drug: Mucomyst - Acetylcysteine PO 600 mg PO once Route: PO; al5 04:18 Follow up: Response: No adverse reaction al5 04:20 Drug: Enoxaparin Sub-Q 1 mg/kg Sub-Q once Route: Sub-Q; Site: abdomen; cp4 04:38 Follow up: Response: No adverse reaction cp4 Medication: 00:49 VIS not applicable for this client. al5 Outcome: 03:56 Decision to Hospitalize by Provider. [facility] 05:41 Admitted to Med/surg accompanied by tech, via wheelchair, room ICU 2, cp4 05:41 Condition: stable 05:41 Instructed on the need for admit, 05:42 Admitted to Med/surg Report called to Jami rose 06:04 Patient left the ED. cp4 Signatures: Dispatcher [employer] EDAL Oneil Middleton MD MD cha Able, Lacie, RN RN 3 Rose Coy Christina cp4 Ivy Holden RN RN al5 Molina, Jessica, RN RN kb4
--- NOTE | 2025-02-03 03:56 | EDPHYS ---
Physician Documentation [facility] Name: Christian Rivers Age: 60 yrs Sex: Male : 1965 Arrival Date: 02/03/2025 Time: :17 Bed 5 Private MD: ED Physician Oneil Middleton HPI: 02/03 00:35 This 60 yrs old Male presents to ER via Ambulatory with complaints of Chest sami Pain, Neck and Upper Back Pain. 00:35 This 60 yrs old Male presents to ER via Ambulatory with complaints of Chest sami Pain, Neck and Upper Back Pain. 00:35 The patient or guardian reports chest pain that is located primarily in the anterior sami chest wall, left. Onset: 7 day(s) ago. The pain does not radiate. Associated signs and symptoms: Pertinent positives: zarate on left when lays down. The chest pain is described as aching. Duration: The patient or guardian reports multiple episodes, with no pattern. Modifying factors: The symptoms are alleviated by remaining still, the symptoms are aggravated by palpation of area, laying down. Severity of pain: At its worst the pain was mild in the emergency department the pain is unchanged. The patient has not experienced similar symptoms in the past. Historical: - Allergies: 00:32 No Known Allergies; lg3 - Home Meds: 00:32 None [Active]; lg3 - PMHx: 00:32 Diabetes - NIDDM; Hypertension; lg3 - PSHx: 00:32 None; lg3 - Immunization history:: Adult Immunizations up to date. - Infectious Disease History:: Denies. - Social history:: Smoking status: Patient denies any tobacco usage or history of. Patient/guardian denies using alcohol, street drugs. - Family history:: not pertinent. ROS: 00:35 Constitutional: Negative for fever, chills, and weight loss, Eyes: Negative for injury, sami pain, redness, and discharge, ENT: Negative for injury, pain, and discharge, Neck: Negative for injury, pain, and swelling, Respiratory: Negative for shortness of breath, cough, wheezing, and pleuritic chest pain, Abdomen/GI: Negative for abdominal pain, nausea, vomiting, diarrhea, and constipation, Back: Negative for injury and pain, : Negative for injury, bleeding, discharge, and swelling, MS/Extremity: Negative for injury and deformity, Skin: Negative for injury, rash, and discoloration, Psych: Negative for depression, anxiety, suicide ideation, homicidal ideation, and hallucinations, Allergy/Immunology: Negative for hives, rash, and allergies, Endocrine: Negative for neck swelling, polydipsia, polyuria, polyphagia, and marked weight changes, Hematologic/Lymphatic: Negative for swollen nodes, abnormal bleeding, and unusual bruising, 00:35 Cardiovascular: Positive for chest pain, of the left clavicle and anterior aspect of left upper chest, 00:35 Neuro: Positive for headache, Exam: 00:35 Constitutional: This is a well developed, well nourished patient who is awake, alert, sami and in no acute distress. Head/Face: Normocephalic, atraumatic. Eyes: Pupils equal round and reactive to light, extra-ocular motions intact. Lids and lashes normal. Conjunctiva and sclera are non-icteric and not injected. Cornea within normal limits. Periorbital areas with no swelling, redness, or edema. ENT: Nares patent. No nasal discharge, no septal abnormalities noted. Tympanic membranes are normal and external auditory canals are clear. Oropharynx with no redness, swelling, or masses, exudates, or evidence of obstruction, uvula midline. Mucous membranes moist. Neck: Trachea midline, no thyromegaly or masses palpated, and no cervical lymphadenopathy. Supple, full range of motion without nuchal rigidity, or vertebral point tenderness. No Meningismus. Cardiovascular: Regular rate and rhythm with a normal S1 and S2. No gallops, murmurs, or rubs. Normal PMI, no JVD. No pulse deficits. Respiratory: Lungs have equal breath sounds bilaterally, clear to auscultation and percussion. No rales, rhonchi or wheezes noted. No increased work of breathing, no retractions or nasal flaring. Abdomen/GI: Soft, non-tender, with normal bowel sounds. No distension or tympany. No guarding or rebound. No evidence of tenderness throughout. Back: No spinal tenderness. No costovertebral tenderness. Full range of motion. Male : Normal genitalia with no discharge or lesions. Skin: Warm, dry with normal turgor. Normal color with no rashes, no lesions, and no evidence of cellulitis. MS/ Extremity: Pulses equal, no cyanosis. Neurovascular intact. Full, normal range of motion., bilateral aka Neuro: Awake and alert, GCS 15, oriented to person, place, time, and situation. Cranial nerves II-XII grossly intact. Motor strength 5/5 in all extremities. Sensory grossly intact. Cerebellar exam normal. Normal gait. Psych: Awake, alert, with orientation to person, place and time. Behavior, mood, and affect are within normal limits. 00:35 Chest/axilla: Inspection: no acute changes, abrasion, is not appreciated, abscess, is not appreciated, assymetry, is not appreciated, cellulitis, is not appreciated, 00:35 ECG was reviewed by the Attending Physician. 01:00 ECG was reviewed by the Attending Physician. [facility] Vital Signs: 00:30 BP 185 / 105; Pulse 98; Resp 17 S; Temp 98.2(O); Pulse Ox 100% on R/A; Weight 58.97 kg; lg3 Height 5 ft. 3 in. (R); Pain 10/10; 00:40 BP 182 / 95; Pulse 92; Resp 18; Pulse Ox 99% on R/A; kb4 01:00 BP 156 / 92; Pulse 91; Resp 18; Pulse Ox 100% on R/A; kb4 02:00 BP 140 / 79; Pulse 82; Resp 18; Pulse Ox 98% ; cp4 03:00 BP 192 / 99; Pulse 86; Resp 18; Pulse Ox 100% ; cp4 04:00 BP 190 / 95; Pulse 85; Resp 18; Pulse Ox 100% ; cp4 00:30 Body Mass Index 23.03 (58.97 kg, 160.02 cm) lg3 00:30 Pain Scale: Adult lg3 MDM: 00:23 Medical Screening Exam initiated [facility] 00:43 Differential diagnosis: abnormal EKG, acute myocardial infarction, acute pericarditis, sami anxiety, coronary artery disease chest wall pain, congestive heart failure cholecystitis, Cholelithiasis costochondritis, esophagitis, gastritis, herpes zoster, hiatal hernia, Rozina-Fernandez syndrome, mitral valve prolapse, myocarditis, pancreatitis, peptic ulcer disease, pericarditis, pleurisy, pneumonia, pneumothorax, pulmonary embolus, stable angina, thoracic aortic disection, unstable angina. HEART Score: History: Slightly Suspicious (0), ECG: Non specific repolarization disturbance / LBTB / PM (1), Age: > 45 and < 65 years (1), Risk Factors: > or = 3 Risk factors for atherosclerotic disease (2), [Hypercholesterolemia] [Hypertension] [DM] [+ Family HX] Troponin: < or = 1 x Normal Limit (0). The patient was given aspirin in the Emergency Department. FESTUS Risk Score: 1 - Three or more CAD risk factors, [Family Hx], [HTN], [DM]. Data reviewed: vital signs, nurses notes, lab test result(s), EKG, radiologic studies, plain films. I considered the following discharge prescriptions or medication management in the emergency department Medications were administered in the Emergency Department. See MAR. Independent interpretation of the following test(s) in the Emergency Department EKG: See my EKG interpretation above. Test considered but Not performed: Ultrasound no 2 d echo. 02/03 00:34 Order name: Basic Metabolic Panel; Complete Time: 01:51 [facility] 02/03 00:34 Order name: CBC with Diff; Complete Time: 01:25 [facility] 02/03 00:34 Order name: LFT's; Complete Time: :51 sami 02/03 00:34 Order name: Magnesium; Complete Time: 01:51 sami 02/03 00:34 Order name: NT PRO-BNP; Complete Time: 01:51 02/03 00:34 Order name: PT-INR; Complete Time: 01:25 02/03 00:34 Order name: Troponin HS; Complete Time: 01:51 sami 02/03 00:34 Order name: Lipase; Complete Time: 01:51 [facility] 02/03 00:34 Order name: UA Rfx Wyatt Cult if indicated; Complete Time: 01:25 02/03 01:25 Order name: COVID-19 Ag + Flu A+B Ag; Complete Time: 02:46 [facility] 02/03 01:52 Order name: Lactate w/ 2H reflex if indic.; Complete Time: 03:49 [facility] 02/03 01:52 Order name: Blood Culture Adult (2) sami 02/03 04:27 Order name: CBC with Automated Diff EDMS 02/03 04:27 Order name: CBC with Automated Diff EDMS 02/03 04:27 Order name: Comprehensive Metabolic Panel EDMS 02/03 04:27 Order name: Comprehensive Metabolic Panel EDMS 02/03 04:27 Order name: Troponin High Sensitivity EDMS 02/03 04:27 Order name: Troponin High Sensitivity EDMS 02/03 04:27 Order name: Troponin High Sensitivity EDMS 02/03 04:27 Order name: Troponin High Sensitivity EDMS 02/03 04:27 Order name: Troponin High Sensitivity EDMS 02/03 04:27 Order name: Troponin High Sensitivity EDMS 02/03 00:34 Order name: XRAY Chest (1 view) [facility] 02/03 00:34 Order name: CT Chest For PE Angio; Complete Time: 04:14 [facility] 02/03 00:34 Order name: CT Head C Spine; Complete Time: 04: [facility] 02/03 00:34 Order name: Cardiac monitoring; Complete Time: 00: [facility] 02/03 00:34 Order name: EKG - Nurse/Tech; Complete Time: : [facility] 02/03 00:34 Order name: IV Saline Lock; Complete Time: 00: [facility] 02/03 00:34 Order name: Labs collected and sent; Complete Time: 00: [facility] 02/03 00:34 Order name: O2 Per Protocol; Complete Time: 00: [facility] 02/03 00:34 Order name: O2 Sat Monitoring; Complete Time: 00: [facility] EC:00 Rate is 98 beats/min. Rhythm is regular. QRS [place] is Normal. [place] interval is normal. QRS sami interval is normal. QT interval is normal. No Q waves. T waves are Normal. ST Segment is depressed in leads II, III, aVF, V4, V5, V6. Clinical impression: NSR w/ Non-specific ST/T Changes. Interpreted by me. Reviewed by me. Administered Medications: 00:46 CANCELLED (Duplicate Order): aspirinchewable tablet 81 mg PO once sami 01:09 Drug: fentaNYL (PF) IVP 50 mcg IVP once Route: IVP; Site: right forearm; kb4 01:10 Follow up: Response: No adverse reaction kb4 01:09 Drug: Ondansetron IVP 4 mg IVP once; over 2 minutes Route: IVP; Site: right forearm; kb4 01:10 Follow up: Response: No adverse reaction kb4 01:09 Drug: Metoprolol PO 50 mg PO once Route: PO; kb4 01:10 Follow up: Response: No adverse reaction kb4 01:09 Drug: Aspirin PO Chewable Tablet 324 mg PO once; 81 mg tablets x 4 Route: PO; kb4 01:10 Follow up: Response: No adverse reaction kb4 03:55 Drug: levofloxacin IVPB 500 mg 100 ml IVPB once over 60 mins Volume: 100 ml; Route: al5 IVPB; Infused Over: 60 mins; Site: right forearm; 04:43 Follow up: IV Status: Completed infusion cp4 03:56 Drug: NS 0.9% IV 1000 ml IV at 1000 ml once; to be given as a bolus over 60 minutes al5 Route: IV; Rate: 1000 ml; Site: right forearm; 04:43 Follow up: IV Status: Completed infusion cp4 03:56 Drug: Mucomyst - Acetylcysteine PO 600 mg PO once Route: PO; al5 04:18 Follow up: Response: No adverse reaction al5 04:20 Drug: Enoxaparin Sub-Q 1 mg/kg Sub-Q once Route: Sub-Q; Site: abdomen; cp4 04:38 Follow up: Response: No adverse reaction cp4 Disposition Summary: 02/03/25 03:56 Hospitalization Ordered Notes: Hospitalization Status: Inpatient Admission sami Provider: Ángel Blancas cha Condition: Fair sami Problem: new sami Symptoms: have improved sami Bed/Room Type: Standard [facility] Location: Intensive Care Unit(02/03/25 05:12) Room Assignment: 2-(02/03/25 05:12) Diagnosis - Chest pain, unspecified sami - Essential (primary) hypertension sami - Pneumonia due to other specified bacteria sami - Chronic kidney disease, unspecified sami Forms: - Medication Reconciliation Form sami - SBAR form sami - Leadership Thank You Letter sami Signatures: Dispatcher [employer] Oneil Browne MD MD cha Garcia, Cindy, RN RN Chanell Keenan RN RN lg3 Ritika Nguyen cp4 Ivy Holden RN RN al5 Jessica Molina RN RN kb4 Corrections: (The following items were deleted from the chart) 00:35 00:35 BASIC METABOLIC PANEL+C.LAB.BRZ ordered. EDMS EDMS 00:35 00:35 CBC+H.LAB.BRZ ordered. EDMS EDMS 00:35 00:35 HEPATIC FUNCTION+C.LAB.BRZ ordered. EDMS EDMS 00:35 00:35 MAGNESIUM+C.LAB.BRZ ordered. EDMS EDMS 00:35 00:35 PROBNP+C.LAB.BRZ ordered. EDMS EDMS 00:35 00:35 PROTIME (+INR)+COAG.LAB.BRZ ordered. EDMS EDMS 00:35 00:35 Troponin High Sensitivity+C.LAB.BRZ ordered. EDMS EDMS 00:35 00:35 LIPASE+C.LAB.BRZ ordered. EDMS EDMS 00:35 00:35 UA Rfx Wyatt Cult if indicated+U.LAB.BRZ ordered. EDMS EDMS 00:35 00:35 Chest Single View+RAD.RAD.BRZ ordered. EDMS EDMS 00:35 00:35 Chest For PE Angio+CT.RAD.BRZ ordered. EDMS EDMS 00:35 00:35 Head C Spine MPR Wo Con+CT.RAD.BRZ ordered. EDMS EDMS 00:46 00:34 Aspirin PO Chewable Tablet 81 mg PO once ordered. [facility] 05:12 03:56 Telemetry/MedSurg (Inpatient) [facility] 05:12 03:56 [facility]
--- NOTE | 2025-02-03 04:13 | RAD REPORT ---
EXAM: CT Head and Cervical Spine Without Intravenous Contrast CLINICAL HISTORY: The patient is 60 years old and is Male; CHEST PAIN TECHNIQUE: Axial computed tomography images of the head/brain and cervical spine without intravenou s contrast. Sagittal and coronal reformatted images were created and reviewed. This CT exam was performed using one or more of the following dose reduction techniques: automated exposure control, adjustment of the mA and/or kV according to patient size, and/or use of iterative reconstruction technique. COMPARISON: No relevant prior studies available. FINDINGS: Brain: Unremarkable. No hemorrhage. No significant white matter disease. No edema. Ventricles: Unremarkable. No ventriculomegaly. Skull: No acute fracture. Sinuses: Unremarkable as visualized. No acute sinusitis. Mastoid air cells: Unremarkable as visualized. No mastoid effusion. Vertebrae: Unremarkable. No acute fracture. Normal alignment. Discs/spinal canal/neural foramina: No acute findings. No spinal canal stenosis. Soft tissues: Unremarkable. * A single impression for all exams can be found at the end of this report EXAM: CT Angiography Chest With Intravenous Contrast CLINICAL HISTORY: The patient is 60 years old and is Male; CHEST PAIN TECHNIQUE: Axial computed tomographic angiography images of the chest with intravenous contrast. Sagittal and coronal reformatted images were created and reviewed. This CT exam was performed using one or more of the following dose reduction techniques: automated exposure control, adjustmen t of the mA and/or kV according to patient size, and/or use of iterative reconstruction technique. MIP reconstructed images were created and reviewed. COMPARISON: No relevant prior studies available. FINDINGS: Pulmonary arteries: Unremarkable. No pulmonary embolism. Aorta: No acute findings. No thoracic aortic aneurysm. Lungs and pleural spaces: Right middle lobe consolidation with a small cavitary component. Scattered reticulonodular densities in the left upper lobe and medial right lower lobe which are nonspecific but can be seen with infection. There are associated 4 mm, 7 mm and 8 mm pulmonary nodules in the left upper lobe. No significant effusion. No pneumothorax. Heart: Unremarkable. No cardiomegaly. No significant pericardial effusion. No evidence of R V dysfunction. Thyroid: Calcification in the right thyroid. Bones/joints: No acute fracture. No dislocation. Soft tissues: Unremarkable. Lymph nodes: Unremarkable. No enlarged lymph nodes. Kidneys and ureters: Mild bilateral perinephric stranding which may be chronic. * A single impression for all exams can be found at the end of this report IMPRESSION: CT Head and Cervical Spine Without Intravenous Contrast: No acute intracranial abnormality. No acute findings in the cervical spine. CT Angiography Chest With Intravenous Contrast: 1. No evidence of pulmonary embolism. 2. Right middle lobe consolidation with a small cavitary component. 3. Scattered reticulonodular densities in the left upper lobe and medial right lower lobe which are nonspecific but can be seen with infection. There are associated 4 mm, 7 mm and 8 mm pulmonary nodules in the left upper lobe. Electronically signed by: Anthony Castanon MD 02/03/2025 04:06 AM CDT RP 8 Due to temporary technical issues with the [employer] reporting system, reports are being concepcion d by the in-house radiologist without review as a courtesy to ensure prompt reporting the interpreting radiologist is fully responsible for the content of the report. Transcribed Date/Time: 02/03/2025 4:13 AM
[2025-02-03] MEDS ORDERED: ENOXAPARIN 60 MG/0.6 ML SQ ONE (04:17)
[2025-02-03] MEDS ORDERED: ACETAMINOPHEN 325 MG TABLET PO PRN (04:22)
--- NOTE | 2025-02-03 04:22 | P.HP ---
Certification for Inpatient Patient admitted to: Inpatient With expected LOS: >2 Midnights Practitioner: I am a practitioner with admitting privileges, knowledge of patient current condition, hospital course, and medical plan of care. Services: Services provided to patient in accordance with Admission requirements found in Title 42 Section 412.3 of the Code of Federal Regulations Patient History Date of Service: 02/03/25 Reason for admission: Chest Pain History of Present Illness: 60 yrs old Male with past medical history of hypertension, diabetes who was brought to ER with complains of Chest Pain. Chest pain located in anterior chest wall started intermittently pressure-like feeling. Started 7 days ago and has been progressively getting worse. Denies any fever or chills. No history of trauma. Chest pain is 4 out of 10 in severity. Radiating to back and had decreased. Denies any shortness of breath. No nausea vomiting or diarrhea. Patient was assessed in the ED and was admitted for further management of chest pain rule out ACS Allergies No Known Drug Allergies Allergy (Verified 01/02/15 14:36) Unknown No Known Allergies Allergy (Uncoded 02/26/16 11:21) Unknown Home medications list reviewed: Yes Home Medications: Metoprolol Tartrate [Lopressor*] 25 mg PO DAILY 01/02/15 RX: Metformin ER [Glucophage ER*] 500 mg PO BID 01/02/15 lisinopriL [Prinivil] 10 mg PO DAILY 01/03/15 Levofloxacin [Levaquin] 500 mg PO DAILY #10 tablet 01/05/15 Methylprednisolone [Medrol dosepack] 4 mg PO DAILY #1 tab.ds.pk 01/05/15 metroNIDAZOLE [Flagyl] 500 mg PO Q8H #30 tablet 01/05/15 - Past Medical/Surgical History Diabetic: Yes Past Medical History: Reviewed- Non-Contributory -: Type 2 diabetes -: Hypertension Past Surgical History: Reviewed- Non-Contributory - Family History Family History: Reviewed- Non-Contributory - Family History Father -: Diabetes - Social History Smoking Status: Never smoker Alcohol use: No CD- Drugs: No Caffeine use: No Review of Systems 10-point ROS is otherwise unremarkable Other: Constitutional: Reports: generalized weakness. Skin: Denies: rash. Allergy/Immun: Denies: rhinorrhea, sneezing. Eyes: Denies: visual loss/blurred. ENT: Denies: earache, nasal congestion. Respiratory: Denies: non productive cough. Cardiovascular: Denies: chest pain, palpitations. GI: Denies: diarrhea, nausea. : Denies: dysuria. Musculoskeletal: Reports: arthritis. Denies: extremity pain. Heme: Denies: bleeding. Endocrine: Denies: polydipsia. Neuro: Reports: dizziness, gait problem, lightheaded, spinning sensation. Psych: Reports: anxiety. All systems rev & neg: except as noted Physical Examination - Vital Signs Temperature: 98.2 F Blood Pressure: 138/72 Pulse: 76 Respirations: 18 Pulse Ox (%): 94 - Physical Exam General: Alert, In no apparent distress HEENT: Atraumatic, Normocephalic Neck: Supple Respiratory: Clear to auscultation bilaterally Cardiovascular: Regular rate/rhythm, Normal S1 S2 Capillary refill: <2 Seconds Gastrointestinal: Soft and benign, W/out hepatosplenomegaly Musculoskeletal: No clubbing Integumentary: No rashes Neurological: Other (Alert awake nonfocal) Lymphatics: No axilla or inguinal lymphadenopathy - Studies Laboratory Data (last 24 hrs) 02/03/25 02/03/25 02/03/25 00:48 00:48 00:48 WBC 7.30 Hgb 12.1 L Hct 35.6 L Plt Count 275 PT 11.4 INR 1.01 Sodium 137 Potassium 4.5 BUN 36 H Creatinine 1.56 H Glucose 155 H Magnesium 2.1 Total Bilirubin 0.2 AST 19 ALT 28 Alkaline Phosphatase 84 Lipase 65 Assessment and Plan - Plan Chest pain rule out ACS Will trend cardiac enzymes Will monitor telemetry Started on aspirin and statin EKG did not show any acute changes suggestive of ischemia Will get an echocardiogram Cardiology consult Acute on chronic CHF possibly systolic/diastolic Monitor closely on telemetry Started on aggressive diuresis Elevated BNP noted Oxygen supplementation Will try to wean down oxygen requirement Continue home medications Titrate as needed Will obtain an echocardiogram Cardiology consult Hypertension Antihypertensives titrated Continue home medications and titrate as needed Hyperlipidemia Continue statin CKD stage II Monitor renal parameters Electrolytes monitor and replace accordingly Diabetes Insulin sliding scale Accu-Chek before every meal and at bedtime GI/DVT prophylaxis Advanced directive full code Discharge Plan: Home Plan to discharge in: 48 Hours - Advance Directives Does patient have a Living Will: No Does patient have a Durable POA for Healthcare: No - Code Status/Comfort Care Code Status: Full Code Time Spent Managing Pts Care (In Minutes): 48
--- NOTE | 2025-02-03 05:48 | RAD REPORT ---
INDICATION: CHEST PAIN COMPARISON: No existing relevant imaging studies are available FINDINGS: Single frontal view of the chest was obtained. SUPPORT DEVICES: None HEART/MEDIASTINUM: Cardiomediastinal contours are normal. LUNGS/PLEURA: Hazy airspace opacities throughout the right lower lobe. Left lung is clear. No pleural effusion or pneumothorax. OTHER: No other significant findings. IMPRESSION: Right lower lobe pneumonia. Recommend follow-up to resolution. Electronically signed by: Derick Esparza DO 02/03/2025 01:44 AM CDT NR Due to temporary technical issues with the PACS/Home Team Therapy reporting system, reports are being concepcion d by the in-house radiologist without review as a courtesy to ensure prompt reporting the interpreting radiologist is fully responsible for the content of the report. Transcribed Date/Time: 02/03/2025 5:48 AM
[2025-02-03] MEDS ORDERED: ONDANSETRON 4 MG/2 ML VIAL IV PRN (07:00)
[2025-02-03] MEDS ORDERED: MORPHINE 2 MG/ML SYR IV PRN (07:03)
[2025-02-03 07:10] VITALS: O2SAT 100
[2025-02-03] MEDS: INSULIN REGULAR (HUMAN) 100 UNIT/ML SQ SCH (07:30)
[2025-02-03] MEDS ORDERED: HYDRALAZINE HCL 20 MG/ML VIAL IV PRN (07:32)
[2025-02-03] MEDS: ASPIRIN EC 81 MG TAB PO SCH (08:06)
[2025-02-03] MEDS: AMLODIPINE 5 MG TAB PO SCH (08:07)
--- NOTE | 2025-02-03 08:49 | P.PN ---
Date of Service: 02/03/25 Subjective: Reports chest pain for the last 2 weeks Denies cough, fever, chills No acute events overnight ROS: 10 point ROS as noted above, otherwise negative Physical exam GEN: Alert, oriented, NAD HEENT: Normal conjunctiva, sclera anicteric CV: Regular rate and rhythm, no edema Pulm: Nonlabored respirations on room air ABD: Soft, nontender, nondistended MSK: No joint tenderness Integumentary: No rashes Neuro: Normal speech, normal affect Vitals reviewed Assessment: Chest pain rule out ACS Right-sided community-acquired pneumonia Primary hypertension Diabetes mellitus type [id number] Plan: Chest pain rule out ACS Troponin negative x 2 so far Will consult cardiology, check third troponin Monitor on telemetry In ICU as overflow patient Continue aspirin, statin Possibly secondary to suspected pneumonia found on imaging Right-sided community-acquired pneumonia Continue antibiotics as levofloxacin Pulmonology consult given possible cavitary lesion Tolerating room air at this time Primary hypertension Attempted verify patient's home medications Will start amlodipine for now Diabetes mellitus type [id number] ACHS Accu-Chek, sliding scale insulin DVT PPX:Lovenox Code status:Wastewater Plant Operator Spent Managing Pts Care (In Minutes): 35 <Marquise Gama - Last Filed: 02/03/25 08:46> I have personally seen and evaluated the patient. I have reviewed the history, physical exam findings, and assessment provided by Marquise Gama CABLE SPLICER ASSISTANT. I agree with the plan of care as documented <Cedric Mandujano - Last Filed: 02/03/25 15:50>
[2025-02-03] MEDS ORDERED: ENOXAPARIN 40 MG/0.4 ML SQ SCH (09:00)
[2025-02-03] MEDS: NA CHLORIDE 0.9% 1,000 ML IV SCH (09:00)
--- NOTE | 2025-02-03 10:37 | P.CNS ---
Date of Consult: 02/03/25 Chief Complaint: Chest Pain History of Present Illness: Patient with PMH of DM, HTN, presented with chest pain happened yesterday, mid chest, lasted for few minutes associated with headache, denies any other cardiac symptoms. Allergies No Known Drug Allergies Allergy (Verified 01/02/15 14:36) Unknown No Known Allergies Allergy (Uncoded 02/26/16 11:21) Unknown Home medications list reviewed: Yes Home Medications: Metformin HCl [Glucophage] 500 mg PO BIDWM 02/03/25 - Past Medical/Surgical History Diabetic: Yes -: Type 2 diabetes -: Hypertension - Family History Father Medical History: Diabetes - Social History Alcohol use: Yes CD- Drugs: No Caffeine use: Yes Place of Residence: Home Review of Systems 10-point ROS is otherwise unremarkable Physical Examination Temp Pulse Resp BP Pulse Ox 98.2 F 88 17 175/84 H 99 02/03/25 07:01 02/03/25 09:00 02/03/25 09:00 02/03/25 09:00 02/03/25 09:00 General: Alert, In no apparent distress HEENT: Atraumatic, PERRLA, Mucous membr. moist/pink, EOMI, Sclerae nonicteric Neck: Supple, 2+ carotid pulse no bruit, No LAD, Without JVD or thyroid abnormality Respiratory: Clear to auscultation bilaterally, Normal air movement Cardiovascular: Regular rate/rhythm, Normal S1 S2 Gastrointestinal: Normal bowel sounds, No tenderness Musculoskeletal: No tenderness Integumentary: No rashes Neurological: Normal gait, Normal speech, Normal tone, Normal affect Lymphatics: No axilla or inguinal lymphadenopathy Laboratory Data (last 24 hrs) 02/03/25 02/03/25 02/03/25 00:48 00:48 00:48 WBC 7.30 Hgb 12.1 L Hct 35.6 L Plt Count 275 PT 11.4 INR 1.01 Sodium 137 Potassium 4.5 BUN 36 H Creatinine 1.56 H Glucose 155 H Magnesium 2.1 Total Bilirubin 0.2 AST 19 ALT 28 Alkaline Phosphatase 84 Lipase 65 - Problems (1) Chest pain Current Visit: Yes Status: Acute Plan: atypical, troponin negative x3. ASA 81 mg daily control BP better get echo (2) HTN (hypertension) Current Visit: Yes Status: Acute Plan: add lopressor 25 mg po BID add lisinopril 10 mg daily continue Norvasc 5 mg daily get echo (3) Pneumonia Onset Date: 01/05/15 Current Visit: No Status: Acute Plan: per primary team.
[2025-02-03] MEDS: METOPROLOL TAR 25 MG TAB PO ONE (10:59)
--- NOTE | 2025-02-03 12:26 | P.CNS ---
Date of Consult: 02/03/25 Reason for Consult: Right middle lobe pneumonia Chief Complaint: Chest Pain History of Present Illness: Patient is 60 years of age has been sick for about 2 weeks admitted with a right-sided chest pain that seems to be pleuritic atypical no prior history of cardiopulmonary history he has diabetes hypertension does not smoke currently gets his medication from [place] is doing well no complaints no history of chest pain on exertion Allergies No Known Drug Allergies Allergy (Verified 01/02/15 14:36) Unknown No Known Allergies Allergy (Uncoded 02/26/16 11:21) Unknown Home Medications: Metformin HCl [Glucophage] 500 mg PO BIDWM 02/03/25 - Past Medical/Surgical History Diabetic: Yes -: Type 2 diabetes -: Hypertension - Family History Father Medical History: Diabetes - Social History Alcohol use: Yes CD- Drugs: No Caffeine use: Yes Place of Residence: Home Review of Systems 10-point ROS is otherwise unremarkable Physical Examination Temp Pulse Resp BP Pulse Ox 98.2 F 65 17 170/92 H 99 02/03/25 07:01 02/03/25 11:01 02/03/25 09:00 02/03/25 11:01 02/03/25 09:00 General: Alert, Oriented x3 Neck: Supple Respiratory: Clear to auscultation bilaterally Cardiovascular: No edema, Regular rate/rhythm Laboratory Data (last 24 hrs) 02/03/25 02/03/25 02/03/25 00:48 00:48 00:48 WBC 7.30 Hgb 12.1 L Hct 35.6 L Plt Count 275 PT 11.4 INR 1.01 Sodium 137 Potassium 4.5 BUN 36 H Creatinine 1.56 H Glucose 155 H Magnesium 2.1 Total Bilirubin 0.2 AST 19 ALT 28 Alkaline Phosphatase 84 Lipase 65 - Problems (1) Pneumonia Onset Date: 01/05/15 Current Visit: No Status: Acute Plan: Patient is 60 years of age admitted with the light right lower lobe pneumonia is currently doing better labs reviewed presumed chronic renal insufficiency white count is normal CT scan reviewed oxygenation satisfactory plan to discharge home on antibiotics follow-up with me in 4 weeks avoid CASA inhibitors may be a trial of calcium channel blockers with metformin Qualifiers: Pneumonia type: due to unspecified organism Laterality: right
--- NOTE | 2025-02-03 12:45 | ECHO ---
HEIGHT: 5 ft 3 in WEIGHT: 130 lb 1.164 oz DATE OF STUDY: 02/03/[address]: Omero Rivera MD 2-DIMENSIONAL: YES M.MODE: YES DOPPLER: YES COLOR FLOW: YES TDS: PORTABLE: YES DEFINITY: BUBBLE STUDY: DIAGNOSIS: CHEST PAIN CARDIAC HISTORY: CATHERIZATION: SURGERY: PROSTHETIC VALVE: PACEMAKER: MEASUREMENTS (cm) DIASTOLIC (NORMALS) SYSTOLIC (NORMALS) IVSd 1.1 (0.6-1.2) LA Diam 3.7 (1.9-4.0) LVEF 55-60% LVIDd 3.4 (3.5-5.7) LVIDs 2.6 (2.0-3.5) %FS 25% LVPWd 1.1 (0.6-1.2) Ao Diam 2.4 (2.0-3.7) 2 DIMENSIONAL ASSESSMENT: RIGHT ATRIUM: NORMAL LEFT ATRIUM: NORMAL RIGHT VENTRICLE: NORMAL LEFT VENTRICLE: NORMAL TRICUSPID VALVE: MILD TRICUSPID REGURGITATION MITRAL VALVE: NORMAL PULMONIC VALVE: NORMAL AORTIC VALVE: MILD CALCIFIED, MILD AORTIC REGURGITATION PERICARDIAL EFFUSION: NONE AORTIC ROOT: NORMAL LEFT VENTRICULAR WALL MOTION: NORMAL DOPPLER/COLOR FLOW: GRADE I DIASTOLIC DYSFUNCTION COMMENTS: 1. NORMAL LEFT VENTRICULAR SYSTOLIC FUNCTION, EJECTION FRACTION 55-60%, NORMAL WALL MOTION 2. GRADE I DIASTOLIC DYSFUNCTION 3. NORMAL FILLING PRESSURE TECHNOLOGIST: FARAZ JUAREZ
[2025-02-03] MEDS: METOPROLOL TAR 25 MG TAB PO SCH (18:16)
[2025-02-03] MEDS: ATORVASTATIN 40 MG TAB PO SCH (20:35)
[2025-02-04 04:38] LABS: Absolute Lymphocytes (CBC) 1.3 K/uL (0.7-4.9); Hematocrit 32.3 % (39.6-49.0); Hemoglobin 11.1 g/dL (13.6-17.9); MCH 29.9 pg (27.0-35.0); MCHC 34.2 g/dL (32.0-36.0); MCV 87.3 fL (80-100); MPV 8.2 fL (7.6-11.3); Nucleated RBC Absolute Count 0.0 (0-0); Nucleated Red Blood Cells % 0.0 % (0-0); RBC Red Blood Cell Count 3.70 M/uL (4.33-5.43); White Blood Count 7.00 thou/uL (4.3-10.9)
[2025-02-04 04:50] LABS: ALT/SGPT 18.0 U/L (16-61); AST/SGOT 13.0 U/L (15-37); Albumin 2.5 g/dL (3.4-5.0); Albumin/Globulin Ratio 0.7 (1.1-1.8); Alkaline Phosphatase 70.0 U/L (45-117); Anion Gap 7.4 mEq/L (5.0-15.0); BUN Blood Urea Nitrogen 28.0 mg/dL (7-18); Globulin 3.7 g/dL (2.3-3.5); Glucose Level 115.0 mg/dL (74-106); Potassium 4.4 mEq/L (3.5-5.1)
[2025-02-04 05:58] VITALS: BMI 23.0
[2025-02-04] MEDS: ENOXAPARIN 40 MG/0.4 ML SQ SCH (06:00)
[2025-02-04 09:08] VITALS: BP 158/79; TEMP 97.8
--- NOTE | 2025-02-04 09:27 | P.DS ---
Admission Date: 02/03/25 Discharge Date: 02/04/25 Disposition: ROUTINE DISCHARGE Discharge Condition: GOOD Reason for Admission: Chest Pain Brief History of Present Illness: 60 yrs old Male with past medical history of hypertension, diabetes who was brought to ER with complains of Chest Pain. Chest pain located in anterior chest wall started intermittently pressure-like feeling. Started 7 days ago and has been progressively getting worse. Denies any fever or chills. No history of trauma. Chest pain is 4 out of 10 in severity. Radiating to back and had decreased. Denies any shortness of breath. No nausea vomiting or diarrhea. Patient was assessed in the ED and was admitted for further management of chest pain rule out ACS. Upon admission cardiology was consulted. Troponin was negative x 3. He resumed his aspirin as well as Lopressor and lisinopril. Echocardiogram revealed EF 55 to 60% with grade 1 diastolic dysfunction. He will follow-up with pulmonology in 4 weeks. He is medically optimized for discharge Hospital Course: ROS: 10 point ROS as noted above, otherwise negative Physical exam GEN: Alert, oriented, NAD HEENT: Normal conjunctiva, sclera anicteric CV: Regular rate and rhythm, no edema Pulm: Nonlabored respirations on room air ABD: Soft, nontender, nondistended MSK: No joint tenderness Integumentary: No rashes Neuro: Normal speech, normal affect Vitals reviewed Assessment: Chest pain rule out ACS Right-sided community-acquired pneumonia Primary hypertension Diabetes mellitus type [id number] Plan: Chest pain rule out ACS Troponin negative x 2 so far Will consult cardiology, check third troponin Monitor on telemetry In ICU as overflow patient Continue aspirin, statin Possibly secondary to suspected pneumonia found on imaging Right-sided community-acquired pneumonia Continue antibiotics as levofloxacin Pulmonology consult given possible cavitary lesion Tolerating room air at this time Primary hypertension Attempted verify patient's home medications Will start amlodipine for now Diabetes mellitus type [id number] ACHS Accu-Chek, sliding scale insulin DVT PPX:Lovenox Code status:Barkeep Spent Managing Pts Care (In Minutes): 35 Vital Signs/Physical Exam: Temp Pulse Resp BP Pulse Ox 97.8 F 62 16 158/79 H 97 02/04/25 08:00 02/04/25 08:00 02/04/25 08:00 02/04/25 08:00 02/04/25 08:00 Laboratory Data at Discharge: WBC 7.00 thou/uL (4.3-10.9) 02/04/25 04:16 Hgb 11.1 g/dL (13.6-17.9) L D 02/04/25 04:16 Hct 32.3 % (39.6-49.0) L 02/04/25 04:16 Plt Count 249 thou/uL (152-406) 02/04/25 04:16 PT 11.4 SECONDS (10-13.0) 02/03/25 00:48 INR 1.01 02/03/25 00:48 Sodium 140 mEq/L (136-145) 02/04/25 04:16 Potassium 4.4 mEq/L (3.5-5.1) 02/04/25 04:16 BUN 28 mg/dL (7-18) H 02/04/25 04:16 Creatinine 1.33 mg/dL (0.70-1.30) H 02/04/25 04:16 Glucose 115 mg/dL (74-106) H 02/04/25 04:16 Magnesium 2.1 mg/dL (1.6-2.4) 02/03/25 00:48 Total Bilirubin 0.2 mg/dL (0.2-1.0) 02/04/25 04:16 AST 13 U/L (15-37) L 02/04/25 04:16 ALT 18 U/L (16-61) 02/04/25 04:16 Alkaline Phosphatase 70 U/L (45-117) 02/04/25 04:16 Lipase 65 U/L (13-75) 02/03/25 00:48 Home Medications: Amlodipine [Norvasc*] 5 mg PO DAILY 30 Days #30 tab 02/04/25 Atorvastatin Calcium [Lipitor] 40 mg PO BEDTIME 30 Days #30 tab 02/04/25 Metoprolol Tartrate [Lopressor*] 25 mg PO BID 6AM 6PM 30 Days #60 tab 02/04/25 Sitagliptin/Metformin HCl [Sitagliptin-Metfor ER 50-1,000] 1 tab PO BID 30 Days #60 tab 02/04/25 levoFLOXacin [Levaquin*] 750 mg PO DAILY 6 Days #6 tab 02/04/25 New Medications: levoFLOXacin [Levaquin*] 750 mg PO DAILY 6 Days #6 tab Atorvastatin Calcium [Lipitor] 40 mg PO BEDTIME 30 Days #30 tab Metoprolol Tartrate [Lopressor*] 25 mg PO BID 6AM 6PM 30 Days #60 tab Amlodipine [Norvasc*] 5 mg PO DAILY 30 Days #30 tab Sitagliptin/Metformin HCl [Sitagliptin-Metfor ER 50-1,000] 1 tab PO BID 30 Days #60 tab Followup: JOSE ANTONIO MAYERS [Primary Care Provider] - 1-2 Weeks
== END 2025-02-04 10:03 | disposition home or self-care (01) | DRG 193 ==
LOC: ER 00:17 → ERHOLD 04:22 → 3RD-ICU 05:40 → 2ND 21:04
PROVIDERS: ADMIT Family Medicine; ATTEND Family Medicine
DX: J18.9 Pneumonia, unspecified organism (principal); I50.43 Acute on chronic combined systolic (congestive) and diastolic (congestive) heart failure; I13.0 Hypertensive heart and chronic kidney disease with heart failure and stage 1 through stage 4 chronic kidney disease, or unspecified chronic kidney disease; N18.2 Chronic kidney disease, stage 2 (mild); E11.22 Type 2 diabetes mellitus with diabetic chronic kidney disease; E78.5 Hyperlipidemia, unspecified; Z11.52 Encounter for screening for COVID-19; Z79.84 Long term (current) use of oral hypoglycemic drugs; Z79.899 Other long term (current) drug therapy
CPT/HCPCS: 36415; 70450; 71045; 71275; 72125; 80048; 80053; 80076; 81001; 82947; 83605; 83690; 83735; 83880; 84484; 85025; 85610; 87040; 87428; 93005; 93306; 96365; 96372; 96375; 99285; J1650; J2405; J3010; J7030; J7608; Q9967